=== PATIENT | female | born 1980 | race Caucasian/White ===

== ENCOUNTER 2021-11-24 13:55 | Observation (INO) | payer MEDICAID, OTHER ==
[~2021-11-24] VITALS: Ht 167.6 cm; Wt 73.5 kg
== END 2021-11-24 15:44 | disposition home or self-care (01) ==
LOC: 8 EST A/PP 13:55
PROVIDERS: ADMIT Specialist; ATTEND Specialist
DX: O36.8920 Maternal care for other specified fetal problems, second trimester, not applicable or unspecified (principal); Z3A.26 26 weeks gestation of pregnancy
CPT/HCPCS: 36415; 86850; 86900; 86901; 90384; 96372; G0378; J2791

== ENCOUNTER 2022-02-22 16:36 | Inpatient (IN) | payer MEDICAID, OTHER ==
[~2022-02-22] VITALS: Ht 167.6 cm; Wt 73.5 kg
[2022-02-22] MEDS: PENICILLIN G POTASSIUM 2.5 MMU in DEXTROSE 5% WATER 50 ML IV SCH (01:00)
[2022-02-22] MEDS ORDERED: MISOPROSTOL 100MCG TABLET VG SCH (17:30)
[2022-02-22] MEDS ORDERED: DEXT 5%/LACTATED RINGERS 1,000 ML IV SCH (17:30)
[2022-02-22] MEDS ORDERED: NALOXONE HCL 0.4 MG/ML 1ML VIAL IM PRN (17:30)
[2022-02-22] MEDS ORDERED: LIDOCAINE HCL 1% 20ML VIAL (Pyxis) INJ INFIL SCH (17:30)
[2022-02-22] MEDS ORDERED: BUTORPHANOL TARTRATE 2 MG/ML VIAL IV PRN (17:30)
[2022-02-22] MEDS ORDERED: PENICILLIN G POTASSIUM 5 MMU in DEXT 5% WATER 100 ML IV SCH (18:00)
[2022-02-22] MEDS: OXYTOCIN 30 UNITS/500ML NS PMX 500 ML IV SCH (18:18)
[2022-02-22] MEDS: LACTATED RINGERS 1,000 ML IV SCH (18:25)
[2022-02-22 18:46] LABS: BASOPHILS % 0.2 % (0.0-2.0); CLARITY URINE CLEAR (CLEAR); COLOR URINE YELLOW (YELLOW); EOSINOPHILS % 0.5 % (0.0-5.0); HEMATOCRIT. 32.9 % (36.0-48.0); HEMOGLOBIN. 11.1 g/dL (12.0-16.0); KETONES URINE TRACE (NEGATIVE); LEUKOCYTE ESTERASE URINE 1+ (NEGATIVE); LYMPHOCYTES % 11.3 % (20.0-50.0); MEAN CORPUSCULAR HEMOGLOBIN 29.2 pg (28.0-32.0); MEAN CORPUSCULAR VOLUME 86.6 fL (81.0-99.0); MEAN PLATELET VOLUME 8.4 fl (7.4-10.4); MONOCYTES % 4.9 % (2.0-8.0); NEUTROPHILS % 83.1 % (40.0-76.0); NITRITE URINE NEGATIVE (NEGATIVE); OCCULT BLOOD URINE 1+ (NEGATIVE); PH URINE 5.5 (4.5-8.0); PLATELET 363 x1000/uL (130-400); PROTEIN URINE 2+ (NEGATIVE); RED BLOOD CELL COUNT 3.79 mill/uL (4.2-5.4); RED CELL DISTRIBUTION WIDTH 14.9 % (11.6-14.6); SPECIFIC GRAVITY URINE 1.019 (1.005-1.030)
[2022-02-22 18:56] LABS: INR 0.9; PARTIAL THROMBOPLASTIN TIME 25.4 sec (23.4-31.0); PROTHROMBIN TIME 9.8 sec (9.6-11.0)
[2022-02-22 18:58] LABS: *AMPHETAMINES SCREEN URINE NEGATIVE (NEGATIVE); *BARBITURATES SCREEN URINE NEGATIVE (NEGATIVE); *BENZODIAZEPINES SCREEN URINE NEGATIVE (NEGATIVE); *COCAINE SCREEN URINE NEGATIVE (NEGATIVE); CANNABINOID URINE SCREEN NEGATIVE (NEGATIVE); METHADONE URINE SCREEN NEGATIVE (NEGATIVE); OPIATES URINE SCREEN NEGATIVE (NEGATIVE); PHENCYCLIDINE URINE SCREEN NEGATIVE (NEGATIVE)
[2022-02-22 19:29] LABS: HEPATITIS B SURFACE ANTIGEN NEGATIVE
[2022-02-23] MEDS: PENICILLIN G POTASSIUM 2.5 MMU in DEXTROSE 5% WATER 50 ML IV SCH ×4 (01:00→09:28)
[2022-02-23] MEDS: LACTATED RINGERS 1,000 ML IV SCH ×3 (01:26→04:12)
[2022-02-23] MEDS ORDERED: ROPIVACAINE HCL/PF EPIDURAL 200 ML EPI ONE (01:53)
[2022-02-23] MEDS ORDERED: ROPIVACAINE HCL/PF EPIDURAL 200 ML EPI NR (02:45)
[2022-02-23] MEDS ORDERED: FOLI-43 PO (03:29)
[2022-02-23] MEDS ORDERED: VENL37.588 PO (03:29)
[2022-02-23] MEDS ORDERED: THYR90TA PO (03:29)
[2022-02-23] MEDS ORDERED: PANT40SU PO (03:29)
[2022-02-23] MEDS ORDERED: PREN-176 PO (03:29)
[2022-02-23] MEDS ORDERED: CITRIC ACID/SODIUM CITRATE SOLN 30ML UDC PO SCH (06:45)
[2022-02-23] MEDS ORDERED: FENTANYL CITRATE/PF 50MCG/ML 2ML VIAL ONE (08:16)
[2022-02-23] MEDS ORDERED: MINERAL OIL 30ML BOTTLE PO NR (11:15)
[2022-02-23] MEDS: OXYTOCIN 30 UNITS/500ML NS PMX 500 ML IV SCH (11:59)
[2022-02-23] MEDS ORDERED: PANTOPRAZOLE 40MG DR TABLET PO NR (12:00)
[2022-02-23] MEDS ORDERED: GLYCERIN/WITCH HAZEL LEAF MEDICATED PAD TOP PRN (12:00)
[2022-02-23] MEDS ORDERED: RHO(D) IMMUNE GLOBULIN 300 MCG/SYR IM PRN (12:00)
[2022-02-23] MEDS ORDERED: BENZOCAINE/LANOLIN/ALOE VERA SPRAY TOP PRN (12:00)
[2022-02-23] MEDS ORDERED: HEMORRHOIDAL SUPP PR PRN (12:00)
[2022-02-23] MEDS ORDERED: METHYLERGONOVINE MALEATE 0.2 MG/ML IM PRN (12:00)
[2022-02-23] MEDS ORDERED: OXYTOCIN 30 UNITS/500ML NS PMX 500 ML IV SCH (12:00)
[2022-02-23] MEDS ORDERED: DIPHENHYDRAMINE 25MG CAPSULE PO PRN (12:00)
[2022-02-23] MEDS ORDERED: IBUPROFEN 400MG TABLET PO PRN (12:00)
[2022-02-23] MEDS ORDERED: LANOLIN OINT 7GM TUBE TOP PRN (12:00)
[2022-02-23] MEDS ORDERED: BISACODYL 10MG SUPP PR PRN (12:00)
[2022-02-23] MEDS: MAGNESIUM/ALUMINUM HYDROXIDE/SIMETHICONE 30ML UDC PO SCH (13:10)
[2022-02-23] MEDS: SIMETHICONE 80MG TABLET CHEW PO SCH (13:10)
[2022-02-23] MEDS: IBUPROFEN 800MG TABLET PO PRN ×2 (13:30→21:03)
[2022-02-23 14:00] VITALS: BP 131/65
[2022-02-23 16:00] VITALS: BP 127/71
[2022-02-23 20:00] VITALS: BP 101/53
[2022-02-23] MEDS: DOCUSATE SODIUM 100MG CAPSULE PO SCH (21:02)
[2022-02-23] MEDS: VENLAFAXINE HCL 37.5MG SR CAPSULE 24HR PO SCH (21:03)
[2022-02-24] MEDS: IBUPROFEN 800MG TABLET PO PRN ×2 (02:55→09:20)
[2022-02-24 03:30] VITALS: BP 99/50
[2022-02-24 06:51] LABS: BASOPHILS % 0.3 % (0.0-2.0); EOSINOPHILS % 0.8 % (0.0-5.0); HEMATOCRIT. 24.1 % (36.0-48.0); HEMOGLOBIN. 8.1 g/dL (12.0-16.0); LYMPHOCYTES % 13.7 % (20.0-50.0); MEAN CORPUSCULAR HEMOGLOBIN 29.5 pg (28.0-32.0); MONOCYTES % 7.1 % (2.0-8.0); NEUTROPHILS % 78.1 % (40.0-76.0); PLATELET 243 x1000/uL (130-400); RED BLOOD CELL COUNT 2.74 mill/uL (4.2-5.4); RED CELL DISTRIBUTION WIDTH 14.5 % (11.6-14.6)
[2022-02-24] MEDS ORDERED: THYROID 60MG TABLET PO SCH (07:00)
[2022-02-24 08:30] VITALS: BP 103/54
[2022-02-24] MEDS: VENLAFAXINE HCL 37.5MG SR CAPSULE 24HR PO SCH ×2 (09:19→21:46)
[2022-02-24] MEDS: MAGNESIUM/ALUMINUM HYDROXIDE/SIMETHICONE 30ML UDC PO SCH ×3 (09:20→21:46)
[2022-02-24] MEDS: FERROUS SULFATE 325MG TABLET PO SCH ×3 (09:20→16:35)
[2022-02-24] MEDS: PRENATAL VIT/FE FUMARATE/FA TABLET PO SCH (09:20)
[2022-02-24] MEDS: SIMETHICONE 80MG TABLET CHEW PO SCH ×3 (09:21→21:46)
[2022-02-24] MEDS: ACETAMINOPHEN WITH CODEINE 300/30MG TABLET PO PRN ×3 (16:35→21:45)
[2022-02-24] MEDS: THYROID 60MG TABLET PO SCH (16:36)
[2022-02-24 20:00] VITALS: BP 103/58
[2022-02-24] MEDS: DOCUSATE SODIUM 100MG CAPSULE PO SCH (21:46)
[2022-02-25] MEDS: IBUPROFEN 800MG TABLET PO PRN (00:02)
[2022-02-25 04:00] VITALS: BP 113/84
[2022-02-25 08:00] VITALS: BP 117/66
[2022-02-25] MEDS: ACETAMINOPHEN WITH CODEINE 300/30MG TABLET PO PRN (08:22)
[2022-02-25] MEDS: MAGNESIUM/ALUMINUM HYDROXIDE/SIMETHICONE 30ML UDC PO SCH (08:22)
[2022-02-25] MEDS: PRENATAL VIT/FE FUMARATE/FA TABLET PO SCH (08:22)
[2022-02-25] MEDS: FERROUS SULFATE 325MG TABLET PO SCH (08:22)
[2022-02-25] MEDS: SIMETHICONE 80MG TABLET CHEW PO SCH (08:22)
[2022-02-25] MEDS ORDERED: CITRIC ACID/SODIUM CITRATE SOLN 30ML UDC PO NR (08:30)
[2022-02-25] MEDS ORDERED: IBUP-2029 MT (08:38)
[2022-02-25] MEDS: VENLAFAXINE HCL 37.5MG SR CAPSULE 24HR PO SCH (08:57)
[2022-02-25] MEDS: THYROID 60MG TABLET PO SCH (09:54)
== END 2022-02-25 12:10 | disposition home or self-care (01) | DRG 542 ==
LOC: OBSVTOIN 16:36 → 8 EST LDRP 16:36 → INTOOBSV 16:36 → OBSVTOIN 16:37 → 8EST 02-23 14:38
PROVIDERS: ADMIT Specialist; ATTEND Specialist
PROC: 10E0XZZ Delivery of Products of Conception, External Approach (ICD-10-PCS; principal; 2022-02-23)
PROC: 0DQP0ZZ Repair Rectum, Open Approach (ICD-10-PCS; 2022-02-23)
PROC: 3E0S3BZ Introduction of Anesthetic Agent into Epidural Space, Percutaneous Approach (ICD-10-PCS; 2022-02-23)
PROC: 00HU33Z Insertion of Infusion Device into Spinal Canal, Percutaneous Approach (ICD-10-PCS; 2022-02-23)
PROC: 0W8NXZZ Division of Female Perineum, External Approach (ICD-10-PCS; 2022-02-23)
DX: O69.81X0 Labor and delivery complicated by cord around neck, without compression, not applicable or unspecified (principal); Z37.0 Single live birth; D62 Acute posthemorrhagic anemia; O99.02 Anemia complicating childbirth; O99.284 Endocrine, nutritional and metabolic diseases complicating childbirth; O99.344 Other mental disorders complicating childbirth; F32.A Depression, unspecified; O34.13 Maternal care for benign tumor of corpus uteri, third trimester; D25.9 Leiomyoma of uterus, unspecified; O36.5930 Maternal care for other known or suspected poor fetal growth, third trimester, not applicable or unspecified; G89.29 Other chronic pain; E03.9 Hypothyroidism, unspecified; O70.3 Fourth degree perineal laceration during delivery; Z3A.39 39 weeks gestation of pregnancy; Z20.822 Contact with and (suspected) exposure to COVID-19
CPT/HCPCS: 36415; 80305; 81003; 85025; 86592; 86703; 86762; 86850; 86900; 87340; 87426; 99281; G0378; J0595; J2540; J2795; J3010; J3490; J7060; J7120; A4315; J2590